=== PATIENT | female | born 1950 | race Two or more races ===

== ENCOUNTER 2020-09-28 11:56 | Emergency (ER) | payer BC, OTHER ==
[2020-09-28 12:37] VITALS: BP 112/67; PULSE 84; TEMP 97.8; BMI 25.7
[2020-09-28] MEDS ORDERED: GABAPENTIN 100 MG CAPSULE PO ONE (14:41)
[2020-09-28] MEDS ORDERED: GABAPENTIN 100 MG CAPSULE ONE (14:45)
== END 2020-09-28 17:16 | disposition home or self-care (01) ==
LOC: JER 11:56
DX: M79.641 Pain in right hand (principal); G60.9 Hereditary and idiopathic neuropathy, unspecified
CPT/HCPCS: 99283-25

== ENCOUNTER 2021-07-29 10:15 | Day surgery (SDC) | payer OTHER ==
[2021-07-24 10:12] VITALS: BMI 28.3
[2021-07-29] MEDS ORDERED: LIDOCAINE HCL 2% (20ML MULTI-DOSE VIAL) ONE (11:06)
[2021-07-29] MEDS ORDERED: SUCCINYLCHOLINE CHLORIDE 200 MG/10 ML SYRINGE ONE (12:02)
[2021-07-29] MEDS ORDERED: MIDAZOLAM HCL 2 MG/2 ML SINGLE DOSE VIAL ONE ×2 (12:02)
[2021-07-29] MEDS ORDERED: PROPOFOL 20 ML ONE (12:02)
[2021-07-29 13:55] VITALS: TEMP 98.1
[2021-07-29 13:57] VITALS: PULSE 74
[2021-07-29 14:03] VITALS: BP 117/58
[2021-07-29] MEDS ORDERED: oxyCODONE HCL 5 MG TABLET PO PRN (15:19)
[2021-07-29] MEDS ORDERED: PROMETHAZINE HCL 25 MG/1 ML VIAL IVPUSH PRN (15:19)
[2021-07-29] MEDS ORDERED: ONDANSETRON 4 MG/2 ML VIAL IVPUSH PRN (15:19)
[2021-07-29] MEDS ORDERED: LACTATED RINGERS SOLUTION 1,000 ML IV SCH (15:30)
== END 2021-07-29 14:15 | disposition home or self-care (01) ==
LOC: FASU 10:15
PROVIDERS: ATTEND Orthopaedic Surgery Hand Surgery
PROC: 01N50ZZ Release Median Nerve, Open Approach (ICD-10-PCS; principal; 2021-07-29 12:23)
DX: G56.01 Carpal tunnel syndrome, right upper limb (principal)